=== PATIENT | male | born 1975 | race Caucasian/White ===

== ENCOUNTER 2018-06-26 11:07 | Emergency (ER) | payer OTHER ==
[2018-06-26 11:25] VITALS: BP 136/100
--- NOTE | 2018-06-26 11:44 | ED Physician Documentation ---
PD HPI HEENT - Stated complaint Stated Complaint: SINUS PRESSURE - Chief complaint Chief Complaint: Heent - History obtained from History obtained from: Patient - History of Present Illness Timing - onset: How many months ago (1) Timing - details: Gradual onset, Still present Pain level max: 0 Pain level now: 0 Location: Sinuses Improves: Nothing Worsens: Other (nothing) Associated symptoms: Congestion, Rhinorrhea. No: Fever, Trismus, Unable to swallow, Swollen nodes, Facial swelling, Headache, Cough Similar symptoms before: Has not had sx before Recently seen: Not recently seen - Additional information Additional information: 43-year-old male with history of sleep apnea and sinus surgery related to deviated septums 8 years ago here with complaint of upper respiratory infection the past month. However he stated that the sinus congestion and pressure has not cleared even if he had taken Zyrtec, Afrin, and [id number] Sudafed. The last time he had taken Sudafed was over 2 weeks ago. He took Afrin spray today to help him breathe better.Denies any trauma, travel or sick contact. Review of Systems Ten Systems: 10 systems reviewed and negative Constitutional: reports: Reviewed and negative. denies: Fever, Chills, Myalgias Eyes: reports: Reviewed and negative Ears: reports: Reviewed and negative. denies: Loss of hearing, Ear pain, Tinnitus/ringing Nose: reports: Rhinorrhea / runny nose, Congestion, Sinus pressure / pain. denies: Epistaxis, Foreign Body Throat: denies: Oral lesions / sores, Sore throat Cardiac: denies: Chest pain / pressure Respiratory: denies: Dyspnea, Cough GI: denies: Abdominal Pain, Nausea Musculoskeletal: denies: Neck pain Neurologic: reports: Reviewed and negative. denies: Generalized weakness Endocrine: denies: Swollen lymph nodes PD PAST MEDICAL HISTORY - Past Medical History Past Medical History: Yes Other Past Medical History: Sleep apnea - Past Surgical History Past Surgical History: Yes - Present Medications Home Medications: Ambulatory Orders Medication Instructions Recorded Confirmed Amox/Clav 875/125 [Augmentin] 1 each PO Q12H #20 tablet 06/26/18 Pseudoephedrine HCl [Sudafed 12 120 mg PO BID #6 tablet.er 06/26/18 Hour] - Allergies Allergies/Adverse Reactions: Allergies Allergy/AdvReac Type Severity Reaction Status Date / Time Penicillins Allergy Unknown Verified 06/26/18 11:25 - Social History Does the pt smoke?: No Smoking Status: Never smoker Does the pt drink ETOH?: Yes Does the pt have substance abuse?: No - Immunizations Immunizations are current?: Yes PD ED PE NORMAL - Vitals Vital signs reviewed: Yes - General General: Alert and oriented X 3, No acute distress, Well developed/nourished - HEENT HEENT: Atraumatic, PERRL, EOMI, Ears normal, Moist mucous membranes, Pharynx benign, Other (Nose with clear secretions.Sinuses nontender to percussion of frontal and maxillary sinuses) - Neck Neck: Supple, no meningeal sign, No adenopathy - Cardiac Cardiac: RRR, No murmur, Strong equal pulses - Respiratory Respiratory: No respiratory distress - Abdomen Abdomen: Soft, Non tender - Derm Derm: Normal color, Warm and dry - Extremities Extremities: No deformity - Neuro Neuro: Alert and oriented X 3, Normal speech - Psych Psych: Normal mood, Normal affect Results - Vitals Vitals: Vital Signs - 24 hr 06/26/18 11:22 Temperature 36.3 C L Heart Rate 72 Respiratory 17 Rate Blood Pressure 136/100 H O2 Saturation 98 Oxygen O2 Source Room air PD MEDICAL DECISION MAKING - ED course Complexity details: considered differential (Sinusitis, sinus disease, upper respiratory infection,Polyps), d/w patient ED course: Patient seems to be desperate to get treated right away although he is not in any acute distress and nontoxic-appearing. He does not want any pain medication for the sinus pressure. He agreed to antibiotics and decongestant Sudafed. Instructed not to overuse his Flonase or Afrin nasal spray Or Sudafed due to rebound. Departure - Departure Disposition: 01 Home, Self Care Clinical Impression: Sinusitis Qualifiers: Sinusitis location: frontal Chronicity: acute Recurrence: non-recurrent Qualified Code(s): J01.10 - Acute frontal sinusitis, unspecified Condition: Stable Instructions: ED Sinusitis Abx Tx Prescriptions: Amox/Clav 875/125 [Augmentin] 1 each PO Q12H #20 tablet Pseudoephedrine HCl [Sudafed 12 Hour] 120 mg PO BID #6 tablet.er Comments: Take the antibiotics and Sudafed as prescribed. Avoid overusing your Afrin or Flonase spray. Follow-up with your primary doctor and get reevaluated and referred to an ENT. If worse return to the emergency room. Discharge Date/Time: 06/26/18 11:51
== END 2018-06-26 11:51 | disposition home or self-care (01) ==
LOC: ED 11:07
DX: J01.10 Acute frontal sinusitis, unspecified (principal)
CPT/HCPCS: 99283

== ENCOUNTER 2019-05-01 07:46 | Outpatient (CLI) | payer OTHER ==
--- NOTE | 2019-05-01 10:36 | MRI Report ---
Reason: LOW BACK PAIN Procedure Date: 05/01/2019 Accession Number: [id number] / [id number] Procedure: MRI - Lumbar Spine W/O CPT Code: Final Report FULL RESULT: EXAM: MRI LUMBAR SPINE WITHOUT CONTRAST EXAM DATE: 05/01/2019 09:26 AM. CLINICAL HISTORY: Chronic low back pain. COMPARISON: None. TECHNIQUE: Multiplanar, multisequence T1-weighted and fluid-sensitive sequences of the lumbar spine from T12 to S1 without contrast. Other: None. FINDINGS: Spinal Canal: The conus terminates at T12-L1. The conus medullaris and cauda equina are unremarkable. Alignment: No scoliosis or spondylolisthesis. Straightening of the lumbar spine. Bone Marrow: Five efa-qry-nocrxph lumbar vertebral bodies are assumed. No gross fractures or bone lesions. No bone marrow replacement. Disk Levels/Facets: T12-L1: Unremarkable. L1-L2: Unremarkable. L2-L3: Unremarkable. L3-L4: Right lateral 3 mm disk protrusion which contacts the exiting right L3 nerve root without impingement. Negative for central spinal canal stenosis. Mild right foraminal stenosis. The left neural foramen is negative for stenosis. L4-L5: Posterior right paracentral 3 mm disk protrusion. Mild right lateral recess stenosis. Mild spinal canal stenosis. Facet joints are within normal limits. Mild disk degeneration. Left neural foramen is negative for stenosis. Mild bilateral stenosis. Mild superior right L5 vertebral body degenerative marrow edema. L5-S1: Posterior left paracentral 4 mm disk herniation with high signal annulus fissure with mild bilateral lateral recess stenosis. Disk herniation contacts the left S1 nerve root axilla (image 6 series 601). Musculature: Normal. No edema or fatty atrophy. Other: The partially visualized retroperitoneum is unremarkable. IMPRESSION: 1. Posterior left paracentral 4 mm L5-S1 disk herniation with high signal annulus fissure and mild left lateral recess stenosis. Posterior left paracentral disk herniation contacts the left S1 nerve axilla without impingement. 2. Posterior 3 mm disk protrusion L4-L5 with mild bilateral lateral recess stenosis, mild central spinal canal stenosis and mild bilateral foraminal stenosis L4-L5. 3. Right lateral 3 mm L3-L4 disk protrusion which contacts the exiting right L3 nerve root and there is mild right foraminal stenosis. Comment: The following findings are so common in adults without low back pain that while we report their presence, they must be interpreted with caution and in the context of the clinical situation. (Reference Xik et al, Spine 2001) Prevalence of findings in patients without low back pain: Disk degeneration (any evidence): 92% Disk desiccation/T2 signal loss: 83% Disk height loss: 56% Disk bulge: 64% Disk protrusion: 32% Annular tear/high intensity zone: 38% RADIA
== END 2019-05-01 07:47 | disposition home or self-care (01) ==
LOC: DI 07:46
PROVIDERS: ATTEND Student in an Organized Health Care Education/Training Program
DX: M51.26 Other intervertebral disc displacement, lumbar region (principal); M51.27 Other intervertebral disc displacement, lumbosacral region; M48.061 Spinal stenosis, lumbar region without neurogenic claudication; M48.07 Spinal stenosis, lumbosacral region
CPT/HCPCS: 72148

== ENCOUNTER 2020-05-11 06:41 | Emergency (ER) | payer OTHER ==
[2020-05-11] MEDS ORDERED: HYDROmorphone 1 MG/ML CARPUJECT IVP STA ×2 (07:16→07:55)
[2020-05-11] MEDS ORDERED: DEXAMETHASONE 10 MG/ML VIAL IVP STA (07:16)
[2020-05-11] MEDS ORDERED: diazePAM INJ 5 MG/ML SYRINGE IVP STA (07:16)
[2020-05-11] MEDS ORDERED: KETOROLAC 30 MG/ML VIAL IVP STA (07:16)
--- NOTE | 2020-05-11 08:17 | ED Physician Documentation ---
PD HPI BACK PAIN - Stated complaint Stated Complaint: BACK PX - Chief complaint Chief Complaint: General - History obtained from History obtained from: Patient - History of Present Illness Timing - onset: Last night Timing - details: Abrupt onset, Still present Location: Lower, Left Quality: Similar to prior episodes (but more severe than previous.) Associated symptoms: Numbness (some numbness left foot and big toe.). No: Fever, Weakness, Incontinent of urine Improves with: No: Rest Worsened by: Movement, Twisting Contributing factors: Twisting. No: Lifting, Trauma Similar symptoms before: Diagnosis (episodic problems with back for years. MRI a year ago showed some herniated discs. Takes Aleve, Flexeril PRN not regularly.) Recently seen: Not recently seen Review of Systems Constitutional: denies: Fever, Chills Nose: denies: Rhinorrhea / runny nose, Congestion Throat: denies: Sore throat Cardiac: denies: Chest pain / pressure Respiratory: denies: Cough GI: denies: Abdominal Pain, Nausea, Vomiting : denies: Dysuria, Incontinent Neurologic: reports: Numbness (some in left foot and big toe). denies: Focal weakness PD PAST MEDICAL HISTORY - Past Medical History Past Medical History: Yes Cardiovascular: None Respiratory: None Endocrine/Autoimmune: None GI: None Musculoskeletal: Chronic back pain - Past Surgical History Past Surgical History: Yes - Present Medications Home Medications: Ambulatory Orders Medication Instructions Recorded Confirmed Amox/Clav 875/125 [Augmentin] 1 each PO Q12H #20 tablet 06/26/18 Pseudoephedrine HCl [Sudafed 12 120 mg PO BID #6 tablet.er 06/26/18 Hour] Oxycodone HCl/Acetaminophen 1 - 2 each PO Q6H PRN #20 tablet 05/11/20 [Percocet 5-325 mg Tablet] dexAMETHasone [Decadron] 4 mg PO DAILY #5 tablet 05/11/20 diazePAM [Valium] 5 mg PO TID PRN #20 tablet 05/11/20 - Allergies Allergies/Adverse Reactions: Allergies Allergy/AdvReac Type Severity Reaction Status Date / Time Penicillins Allergy Unknown Verified 06/26/18 11:25 - Social History Does the pt smoke?: No Smoking Status: Never smoker Does the pt drink ETOH?: Yes Does the pt have substance abuse?: No - Immunizations Immunizations are current?: Yes - POLST Patient has POLST: No PD ED PE NORMAL - Vitals Vital signs reviewed: Yes - General General: Alert and oriented X 3, Well developed/nourished, Other (appears in pain due to low back; guarded ROM. ) - Cardiac Cardiac: RRR, No murmur - Respiratory Respiratory: Clear bilaterally - Abdomen Abdomen: Soft, Non tender - Back Back: No CVA TTP, No spinal TTP, Other (tender left paralumbar muscles. No rash nor sores. ) - Derm Derm: Normal color, Warm and dry, No rash - Neuro Neuro: Alert and oriented X 3, No motor deficit, Normal speech, Other (normal knee reflexes. There is decreased sensation left top of foot and anteromedial lower leg. Else symmetric and can distinguish firm/light touch. ) Results - Vitals Vitals: Vital Signs - 24 hr 05/11/20 05/11/20 05/11/20 06:48 06:56 08:45 Temperature 36.9 C 36.9 C 36.8 C Heart Rate 90 90 84 Respiratory 24 24 15 Rate Blood Pressure 116/90 H 116/90 H 118/78 O2 Saturation 97 97 99 Oxygen O2 Source Room air PD MEDICAL DECISION MAKING - ED course Complexity details: re-evaluated patient (pain improved enough for the patient. He is able to move reasonably. ), considered differential (low back pain without acute trauma. No red flags to suggest need for imaging. ), d/w patient Departure - Departure Disposition: 01 Home, Self Care Clinical Impression: Low back pain Qualifiers: Chronicity: acute Back pain laterality: left Sciatica presence: with sciatica Sciatica laterality: sciatica of left side Qualified Code(s): M54.42 - Lumbago with sciatica, left side Condition: Stable Record reviewed to determine appropriate education?: Yes Instructions: ED Spasm Back No Trauma, ED Sciatica Follow-Up: LETICIA POPE MD [Primary Care Provider] - Prescriptions: dexAMETHasone [Decadron] 4 mg PO DAILY #5 tablet Oxycodone HCl/Acetaminophen [Percocet 5-325 mg Tablet] 1 - 2 each PO Q6H PRN #20 tablet PRN Reason: pain diazePAM [Valium] 5 mg PO TID PRN #20 tablet PRN Reason: Spasms Comments: Heat and gentle stretching for the back massage and chiropractic are good as well. Try to reduce the spasming. Continue Aleve 2 to 3 tablets twice daily. Add Decadron steroid daily for 5 more days. Diazepam 3 times a day if needed for spasms. When improving you can return to your cyclobenzaprine instead. Add Tylenol or Percocet if needed for pain. Off work for 2 to 3 days. Recheck if not improved well over the next several days. Forms: Activity restrictions Discharge Date/Time: 05/11/20 08:51
[2020-05-11 08:51] VITALS: BP 118/78
== END 2020-05-11 08:51 | disposition home or self-care (01) ==
LOC: ED 06:41
DX: M54.42 Lumbago with sciatica, left side (principal)
CPT/HCPCS: 36415; 96374; 96375; 99283; 99284; J1170

== ENCOUNTER 2022-03-16 08:03 | Outpatient (CLI) | payer OTHER ==
--- NOTE | 2022-03-16 10:26 | MRI Report ---
PROCEDURE: Lumbar Spine W/O INDICATIONS: LOW BACK PAIN, NECK PAIN, BILAT CERVICAL RADICULOP TECHNIQUE: Noncontrast sagittal T1 spin echo and T2 fast echo, sagittal STIR, axial T1 and T2 fast spin echo thr ough the lumbar spine. In cases with scoliosis, additional coronal T2 fast spin echo may be performe d. COMPARISON: 05/01/2019 FINDINGS: Image quality: Excellent. Alignment and Curvature: No spondylolisthesis. Bone Marrow: No acute fracture. Scattered mild Modic changes. Spinal Cord: Conus terminates at L1. Normal appearance of the cauda equina nerve roots. Paraspinous Soft Tissues: Hypertrophy versus isointense mass in the lower pole of the right kidney (5 /26) possible adjacent calcification (5/30). T12-L1: Normal in appearance. L1-L2: Normal in appearance. L2-L3: Mild facet arthropathy and small diffuse disc bulge. No stenosis. L3-L4: Moderate-sized diffuse disc bulge and facet arthropathy. Mild central narrowing. There is mi ld bilateral neural foraminal narrowing. L4-L5: Diffuse disc bulge with superimposed central protrusion and annular fissure. There is modera te central narrowing affecting both subarticular recesses. Bilateral facet arthropathy. Moderate bila teral neural foraminal narrowing. L5-S1: Diffuse disc bulge, and left paracentral protrusion with an annular fissure. There is facet arthropathy. Slight displacement of the left subarticular recess traversing S1 nerve root. Moderate left and mild right neural foraminal narrowing. IMPRESSION: Mid and lower lumbar spondylosis as above, primarily involving disc disease. These are s lightly progressed compared to imaging from 2019. There is a questionable mass versus hypertrophy of the lower pole the right kidney. This area is not well seen on lumbar spine MRI. Ultrasound is recommended. Reviewed by: Benji Avendano MD on 03/16/2022 10:25 AM PDT Approved by: Benji Avendano MD on 03/16/2022 10:25 AM PDT Station ID: [id number]
--- NOTE | 2022-03-16 10:49 | MRI Report ---
PROCEDURE: Cervical Spine W/O INDICATIONS: LOW BACK PAIN, NECK PAIN, BILAT CERVICAL RADICULOP TECHNIQUE: Noncontrast sagittal T1 spin echo and T2 fast spin echo, sagittal STIR, foraminal oblique sagittal T2 fast spin echo, and axial gradient echo through the cervical spine. COMPARISON: None. FINDINGS: Image quality: Excellent. Alignment and Curvature: There is normal bony alignment. Bone Marrow: Marrow demonstrates normal overall signal. Spinal Cord: Visualized spinal cord has normal size and signal. No cerebellar tonsillar herniation. Paraspinous Soft Tissues: No paravertebral masses. Prevertebral soft tissues are normal in thicknes s. C2-C3: Mild right uncovertebral joint and facet hypertrophy, which results in mild right neural fora angie narrowing without significant spinal canal stenosis or left neural foraminal narrowing. C3-C4: Mild disc desiccation as well as right greater than left uncovertebral joint and facet hyper trophy, which result in mild narrowing of the right neural foramen without significant left neural fo raminal narrowing or spinal canal stenosis. C4-C5: Mild disc desiccation and loss of disc space height as well as bilateral uncovertebral joint and facet hypertrophy. Findings result in moderate to severe right and mild left neural foraminal bartolo rowing without significant spinal canal stenosis. C5-C6: Mild disc desiccation as well as bilateral uncovertebral joint and facet hypertrophy, which r esult in mild to moderate bilateral neural foraminal narrowing without significant spinal canal steno sis. C6-C7: Disc desiccation and mild posterior disc-osteophyte complex as well as bilateral intervertebr al joint and facet hypertrophy, which result in moderate to severe bilateral neural foraminal narrowi ng without significant spinal canal stenosis. C7-T1: No significant disc bulging, spinal canal stenosis, or neuroforaminal narrowing. IMPRESSION: 1.Multilevel facet joint and uncovertebral joint hypertrophy as well as mild degenerative disc diseas e as described in detail in the body the report. 2.Multilevel neural foraminal narrowing is most notable and moderate to severe at the right C4-5 neur al foramen and the bilateral C6-7 neural foramina. 3.No high-grade spinal canal stenosis. Reviewed by: Blas Briscoe MD on 03/16/2022 10:48 AM PDT Approved by: Blas Briscoe MD on 03/16/2022 10:48 AM PDT Station ID: [id number]
== END 2022-03-16 08:04 | disposition home or self-care (01) ==
LOC: DI 08:03
DX: M47.26 Other spondylosis with radiculopathy, lumbar region (principal); M51.16 Intervertebral disc disorders with radiculopathy, lumbar region; M47.27 Other spondylosis with radiculopathy, lumbosacral region; M51.17 Intervertebral disc disorders with radiculopathy, lumbosacral region; M48.061 Spinal stenosis, lumbar region without neurogenic claudication; M48.07 Spinal stenosis, lumbosacral region; M47.22 Other spondylosis with radiculopathy, cervical region; M50.11 Cervical disc disorder with radiculopathy, high cervical region

== ENCOUNTER 2023-07-11 09:50 | Emergency (ER) | payer BC, OTHER ==
[2023-07-11] MEDS ORDERED: cefTRIAXone 1 GM VIAL IM STA (11:25)
[2023-07-11] MEDS ORDERED: LIDOCAINE 1% 2 ML VIAL MC ONE (11:25)
[2023-07-11] MEDS ORDERED: DEXAMETHASONE 10 MG/ML VIAL PO STA (11:26)
[2023-07-11] MEDS ORDERED: CHERRY SYRUP 10 ML UDC PO ONE (11:26)
--- NOTE | 2023-07-11 11:26 | ED Physician Documentation ---
PD HPI HEENT - Stated complaint Stated Complaint: LT EAR PX - Chief complaint Chief Complaint: Heent - History obtained from History obtained from: Patient - History of Present Illness Timing - onset: How many days ago (5) Timing - duration: Days (5) Timing - details: Gradual onset, Still present Location: Left ear Improves: Medication Worsens: Swalllowing Associated symptoms: Congestion, Rhinorrhea, Swollen nodes, Facial swelling, Cough Similar symptoms before: Diagnosis (OM) Recently seen: Clinic - Additional information Additional information: 48-year-old Byron Fernandez believes he might have an allergy to penicillin and he has come to the emergency department today after being treated with azithromycin for otitis media and having progression of symptoms. He is on his third day of azithromycin. He has had prior otitis that led to a hospitalization when it did not respond to treatment. Review of Systems Constitutional: denies: Fever Eyes: denies: Decreased vision Ears: reports: Loss of hearing, Ear pain Nose: reports: Rhinorrhea / runny nose, Congestion Throat: denies: Sore throat Respiratory: reports: Cough. denies: Dyspnea PD PAST MEDICAL HISTORY - Past Medical History Past Medical History: Yes Cardiovascular: Hypertension Respiratory: None Neuro: None Endocrine/Autoimmune: None GI: None : None HEENT: None Psych: None Musculoskeletal: Chronic back pain Derm: None - Past Surgical History Past Surgical History: Yes - Present Medications Home Medications: Ambulatory Orders Medication Instructions Recorded Confirmed Azithromycin [Zithromax] 250 mg PO DAILY 07/11/23 07/11/23 Cefdinir 300 mg PO BID #20 cap 07/11/23 Lisinopril [Zestril] 20 mg PO DAILY 07/11/23 07/11/23 - Allergies Allergies/Adverse Reactions: Allergies Allergy/AdvReac Type Severity Reaction Status Date / Time Penicillins Allergy Unknown Verified 07/11/23 10:02 acetaminophen [From Vicodin] AdvReac Itching Verified 07/11/23 10:02 hydrocodone [From Vicodin] AdvReac Itching Verified 07/11/23 10:02 - Social History Does the pt smoke?: No Smoking Status: Former smoker Does the pt drink ETOH?: Yes Does the pt have substance abuse?: No - Immunizations Immunizations are current?: Yes - POLST Patient has POLST: No PD ED PE NORMAL - Vitals Vital signs reviewed: Yes (hypertensive mild ) - General General: Alert and oriented X 3, No acute distress, Well developed/nourished - HEENT HEENT: Atraumatic, PERRL, EOMI, Pharynx benign, Other (The left TM is markedly inflamed with distortion of the landmarks. The right has only mild cerntral erythema) - Neck Neck: Supple, no meningeal sign, No bony TTP, Other (There is tenderness and fullness along the left jaw at the angle of the jaw. No fluctuance. ) - Cardiac Cardiac: RRR, No murmur - Respiratory Respiratory: No respiratory distress, Clear bilaterally - Abdomen Abdomen: Soft, Non tender - Back Back: No CVA TTP, No spinal TTP - Derm Derm: Normal color, Warm and dry, No rash - Extremities Extremities: No deformity, No edema - Neuro Neuro: Alert and oriented X 3, statistical technician 2-12 intact, No motor deficit, No sensory deficit, Normal speech Eye Opening: Spontaneous Motor: Obeys Commands Verbal: Oriented GCS Score: 15 - Psych Psych: Normal mood, Normal affect Results - Vitals Vitals: Vital Signs - 24 hr 07/11/23 10:04 Temperature 36.8 C Heart Rate 92 Respiratory 16 Rate Blood Pressure 137/84 H O2 Saturation 97 Oxygen O2 Source Room air PD Medical Decision Making - ED course Complexity details: considered differential, d/w patient ED course: 48-year-old male failing outpatient management of otitis with azithromycin presents to the emergency department with progressive symptoms. He does appear to have an angry otitis on the left side he does have some mild swelling to the left side of his face as well. He has had a prior poor outcome. Today we are aggressive about treatment administering a gram of Rocephin IM and we have given the patient a dose of dexamethasone as well. We will place him on some cefdinir. I have instructed the patient he may want to test for penicillin allergy as a common antibiotics used for treatment of otitis usually involve amoxicillin. Departure - Departure Disposition: 01 Home, Self Care Clinical Impression: Otitis media Qualifiers: Otitis media type: suppurative Chronicity: acute Laterality: left Recurrence: recurrent Spontaneous tympanic membrane rupture: without spontaneous rupture Qualified Code(s): H66.005 - Acute suppurative otitis media without spontaneous rupture of ear drum, recurrent, left ear Condition: Stable Instructions: ED Otitis Media Acute Adult Follow-Up: NAN SHELL PA [Primary Care Provider] - Prescriptions: Cefdinir 300 mg PO BID #20 cap Comments: Byron, today it looks like you are failing treatment of middle ear infection and we have switched your antibiotic to cefdinir. We did give you an injection of Rocephin here in the emergency department as well as a dose of dexamethasone. Our expectations with treatment are improvement of your symptoms over this next week. The cefdinir has been e[facility] to [facility] in [place].
[2023-07-11 12:03] VITALS: BP 128/82; O2SAT 98
== END 2023-07-11 12:00 | disposition home or self-care (01) ==
LOC: ED 09:50
DX: H66.005 Acute suppurative otitis media without spontaneous rupture of ear drum, recurrent, left ear (principal); Z87.891 Personal history of nicotine dependence
CPT/HCPCS: 96372; 99283; 99284; A9270

== ENCOUNTER 2023-08-21 08:42 | Emergency (ER) | payer BC, OTHER ==
--- NOTE | 2023-08-21 09:00 | ED Physician Documentation ---
PD HPI HEENT - Stated complaint Stated Complaint: LT EAR PX - Chief complaint Chief Complaint: Heent - History obtained from History obtained from: Patient - History of Present Illness Timing - onset: How many weeks ago Timing - details: Gradual onset, Still present, Waxing and waning (Has been treated with several antibiotic courses over the last 3 weeks with some improvement but no resolution.) Location: Left ear. No: Sinuses, Throat Worsens: Swalllowing Associated symptoms: No: Fever, Congestion, Rhinorrhea, Facial swelling Recently seen: Clinic, Emergency Dept, Other (He has been seen several times. Initially prescribed Zithromax from the clinic without improvement. Then seen in the ER and prescribed cefdinir. Not improved and then treated Cipro orally. Most recent was 2 days ago and started on ofloxacin eardrops with cefuroxime orally. Symptoms increased.) Review of Systems Constitutional: denies: Fever, Chills, Myalgias Ears: reports: Loss of hearing (left ear) Nose: denies: Rhinorrhea / runny nose, Congestion Throat: denies: Sore throat Respiratory: denies: Cough PD PAST MEDICAL HISTORY - Past Medical History Cardiovascular: None Respiratory: None Neuro: None Endocrine/Autoimmune: None GI: None : None HEENT: None Psych: None Musculoskeletal: Chronic back pain Derm: None - Past Surgical History Past Surgical History: Yes - Present Medications Home Medications: Ambulatory Orders Medication Instructions Recorded Confirmed Lisinopril [Zestril] 20 mg PO DAILY 07/11/23 08/21/23 Cefuroxime Axetil [Cefuroxime] 1 tab PO BID 08/21/23 08/21/23 Doxycycline Hyclate 100 mg PO BID 7 Days #14 cap 08/21/23 Magnesium 1 tab PO DAILY 08/21/23 08/21/23 Meloxicam [Mobic] 7.5 mg PO BID 10 Days #20 tablet 08/21/23 Neomycin/Polymyx/Hc Otic Drops 4 drops LEFTEAR Q4H 5 Days #10 ml 08/21/23 [Cortisporin Ear Susp] Ofloxacin [Ofloxacin Otic drops] 1 drops OT DAILY 08/21/23 08/21/23 Oxycodone HCl/Acetaminophen 1 each PO Q6H PRN #10 tablet 08/21/23 [Percocet 5-325 mg Tablet] - Allergies Allergies/Adverse Reactions: Allergies Allergy/AdvReac Type Severity Reaction Status Date / Time Penicillins Allergy Unknown Verified 07/11/23 10:02 acetaminophen [From Vicodin] AdvReac Mild Itching Verified 08/21/23 09:00 hydrocodone [From Vicodin] AdvReac Mild Itching Verified 08/21/23 09:00 - Social History Does the pt smoke?: No Smoking Status: Never smoker Does the pt drink ETOH?: Yes Does the pt have substance abuse?: No - Immunizations Immunizations are current?: Yes - POLST Patient has POLST: No PD ED PE NORMAL - Vitals Vital signs reviewed: Yes - General General: Alert and oriented X 3, Well developed/nourished - HEENT HEENT: Pharynx benign. No: Ears normal (right is normal. Left with inflammation and exudate left ear canal. Culture obtained. TM poorly seen but appears inflammated. No noted perforation. Canal tissue swelling. ) - Neck Neck: Supple, no meningeal sign, Other (left neck anterior tender adenopathy. ) Results - Vitals Vitals: Vital Signs - 24 hr 08/21/23 08/21/23 08:49 10:45 Temperature 36.8 C Heart Rate 83 78 Respiratory 12 18 Rate Blood Pressure 153/98 H 145/86 H O2 Saturation 97 100 Oxygen O2 Source Room air - Labs Labs: Microbiology 08/21/23 09:15 Ear Culture - Preliminary Ear,Outer - Left - Rads (name of study) maxilofacial CT Relevant Findings:: Prelim report reviewed (norml mastoids. Ear canal inflammation. No abscess. ), EMP independent interpretation of test PD Medical Decision Making - ED course Complexity details: reviewed results (Maxillofacial CT was done to ensure no signs of abscess, bone degradation or mastoid air cell involvement. These were normal by report. Swelling noted in the ear canal area. No obvious otitis media.), considered differential (The patient has had persistent left ear pain and swelling with diagnosis of middle ear infection and ear canal for several weeks. Unresponsive to several courses of antibiotics. Here with increased pain now.), d/w patient ED course: The patient does have swelling and exudate in the ear canal. The eardrum appears slightly inflamed and hard to fully identify. The CT scan showed infl ammation around the ear canal but it did to my eye extend into the deeper tissue. For that reason, I feel it would not respond to just eardrops. The likely culprit is more likely staph in the ear canal. His previous antibiotics had been Zithromax, Saif the near and cefuroxime so all more targeted to strep. I feels changing him to staph coverage will be more effective. Also given some anti-inflammatories and pain medicines for the short-term. Departure - Departure Disposition: 01 Home, Self Care Clinical Impression: Ear pain, left, Otitis externa, Cellulitis of left ear canal Condition: Stable Record reviewed to determine appropriate education?: Yes Follow-Up: NAN SHELL PA [Primary Care Provider] - [facility] [place] [Provider Group] Prescriptions: Neomycin/Polymyx/Hc Otic Drops [Cortisporin Ear Susp] 4 drops LEFTEAR Q4H 5 Days #10 ml Doxycycline Hyclate 100 mg PO BID 7 Days #14 cap Meloxicam [Mobic] 7.5 mg PO BID 10 Days #20 tablet Oxycodone HCl/Acetaminophen [Percocet 5-325 mg Tablet] 1 each PO Q6H PRN #10 tablet PRN Reason: pain Comments: Your CT scan shows soft tissue inflammation around the ear canal and towards the middle ear. No signs of bone involvement nor fluid buildup around the ear bones nor mastoid air cells. No abscesses seen. It therefore does not appear to have a deep-seated source of infection. I presume the difficulty getting rid of it may be more the antibiotics being off target. I would add doxycycline for better staph coverage (the initial antibiotics were the ones most commonly used for this so were appropriate i nitially). You can continue the most recent antibiotic of cefuroxime. Add the doxycycline. I would change the antibiotic eardrops to Cortisporin. This does have a mild steroid in it as well to help with inflammation. Add meloxicam anti-inflammatory twice daily with food for the next week. To that add Tylenol 500 to 650 mg every 4-6 hours if needed for pain. To that add oxycodone/acetaminophen every 6 hours if needed for worse pain. I am hoping this will improve well over the next several days. I also given the name of a ear nose and throat group in [place]. He can call for follow-up appointment with them, being more specialized, they may have other approaches as well. I sent your prescriptions to preferred pharmacy, [facility] in [place]. I am prescribing a short course of narcotic pain medication for you. These are potentially dangerous and addictive medications that should be used carefully. These medications may constipate you. Take an [id number] stool softener such as docusate twice daily with plenty of water while taking these medications. If you go 24 hours without a bowel movement, take [id number] MiraLAX, per package instructions. Do not drink or drive while taking these medications. If you received narcotic or sedating medications while in the emergency department do not drive for 24 hours. Store this medication in a safe, secure place and out of reach of children. It is a violation of federal law to give or sell this medication to another person or to use in a manner other than prescribed. The ED will not refill narcotic prescriptions, including prescriptions lost or stolen. You can dispose of unwanted medications at the [facility]'s office or at several pharmacies such as [facility]. We did do a culture of the ear canal. The preliminary Gram stain is showing gram-positive cocci in pairs which would be suggestive of Staph aureus. They are seeing some bacilli as well. The culture of it will be more definitive and should result in a day or 2. Will be able to guide antibiotic choice or change it if we need to based off of that. Will call you if we need to change the antibiotics. Forms: PCP List Discharge Date/Time: 08/21/23 10:40
[2023-08-21] MEDS: DOXYCYCLINE 100 MG TABLET PO STA (09:46)
[2023-08-21] MEDS: ACETAMINOPHEN 325 MG TABLET PO STA (09:46)
[2023-08-21] MEDS: IBUPROFEN 600 MG TABLET PO STA (09:46)
--- NOTE | 2023-08-21 10:15 | CT Report ---
PROCEDURE: Maxillofacial WO INDICATIONS: left ear infection, recurrent, painful TECHNIQUE: Noncontrast 1.5 mm thick axial images acquired from the mandible through the frontal sinuses, with co faviola and sagittal reformatting. For radiation dose reduction, the following was used: automated ex posure control, adjustment of mA and/or kV according to patient size. COMPARISON: None. FINDINGS: Image quality: Excellent. Bones and teeth: Orbital nevarez are intact. Sinus nevarez show no fracture or deformity. Nasal bones and septum are intact. Visualized portions of the mandible demonstrate no fractures or subluxation. Zygomatic arches are intact. Pterygoid plates are intact. Visualized portions of the skull base an d auditory canals are intact. In this patient with this given history, scrutiny is given to the middle ear cavities. No abnormal fl uid or soft tissue can be seen within the middle ear cavities. Sinuses: Several mucous retention cysts can be seen involving the maxillary sinuses. Mild mucosal thi ckening can be seen elsewhere within the paranasal sinuses. The frontal sinuses are poorly developed. No abnormal mastoid air cell fluid can be seen. Soft tissues: There is thickening seen involving the soft tissues of the left external auditory leo l, as seen on series 8 image 74 and on series 3 image 190. Generalized regional inflammatory change c an be seen. No significant associated bony abnormality can be seen. No enlarged lymph nodes. No soft tissue lacerations or debris. Vascular: Visualized vascular structures appear normal in the absence of contrast. Bony vascular fo ramina and canals are intact. IMPRESSION: Extensive left-sided otitis externa, without lara otitis media. No abnormal mastoid air cell fluid can be seen. Reviewed by: Ap Dias MD on 08/21/2023 9:13 AM [facility] Approved by: Ap Dias MD on 08/21/2023 9:13 AM [facility] Station ID: [id number]
[2023-08-21 10:46] VITALS: BP 145/86; O2SAT 100
--- NOTE | 2023-08-24 11:38 | ED Physician Documentation ---
ED Addendum - Addendum Addendum: 08/24/23 Culture results reviewed which is positive for Pseudomonas. It is sensitive to bertha quinolones. Patient was discharged with prescriptions for doxycycline and Cortisporin otic drops. Will change prescriptions to Cipro p.o. as well as Ciprodex eardrops and these prescriptions have been sent to [facility]. Requested charge nurse to call patient to update regarding culture results and new prescriptions.
== END 2023-08-21 10:40 | disposition home or self-care (01) ==
LOC: ED 08:42
DX: H60.12 Cellulitis of left external ear (principal)
CPT/HCPCS: 70486; 87070; 99284; A9270; 87077; 87181

== ENCOUNTER 2024-01-05 13:43 | Outpatient (CLI) | payer BC, OTHER ==
--- NOTE | 2024-01-05 14:45 | Sleep Patient Instructions ---
Sleep Center Visit Summary - Patient Visit Information Reason for Visit: Initial consultation. - Patient Instructions Additional Instructions: You will continue with CPAP therapy with pressure set at 13 cmH2O. A supply prescription will be updated with your DME. I have added an order to update your PAP machine. Please call the office to schedule a compliance follow up once you get your new device. I will also send the referral for the Inspire Implant therapy and ordered another sleep study to update your diagnosis and severity. We encourage you to continue to try to lose weight. Please follow up with the sleep care office one month after obtaining new device. - Clinic Information Contact: [facility] [address] [place] [address] [email or web address] T: [phone]
--- NOTE | 2024-01-05 14:50 | SLEEP CARE CONSULTATION ---
Information from patient questionnaire entered by Franci Cortez. I have reviewed and concur with the information entered by Franci Cortez. This document represents the service I personally performed and the decisions made by me, Shalini Flores ARNP. History of Present Illness Service Date and Time: 01/05/2024 1343 Reason for Visit: New patient, Previously diagnosed sleep apnea, sleep apnea on CPAP therapy Chief Complaint: reports: Other (UPDATE SUPPLIES) Date of Onset: 7YRS Usual bedtime: 9PM Time it takes to fall asleep: 45MINS Snores at night: Yes Observed to quit breathing while asleep: Yes Sleeps alone due to snoring: No Number of times waking at night: 6-8 Reasons for waking at night: reports: Snoring, Gasping for air, Bathroom, Other (NOISE) Toss, Turn, or Twitch while sleeping: Yes Recalls having dreams: Yes Usually gets out of bed at: 2006-0110 Feels refreshed in the morning: No Morning headache: Yes Sleepy or fatigued during the day: Yes Ever fallen asleep while driving: No Takes day naps: No Prior sleep studies: Yes Year and Where: 2016 [facility] Additional HPI information: PATSY WOLFE was previously diagnosed to have severe, AHI 53.1, obstructive sleep apnea-hypopnea syndrome at [facility] on 05/26/2017 and comes in today to establish care for CPAP therapy. - Parasomnia Symptoms Ever been unable to move upon waking from sleep: No Walks in sleep: No Talks in sleep: Yes Ever acted out dreams in sleep: No Ever felt weak in the knees when startled or emotional: No Bothered by creepy, crawly, restless sensations in legs: No Problems with memory or concentration: Yes CPAP Compliance Data - Data Reviewed with Patient Average duration of nightly device use: 7 hours 55 minutes Compliance rate %: 98 (89/90 days used) Current pressure setting (cmH2O): 13 Average residual AHI: 0.9 Central apnea: 0.1 Obstructive apnea: 0.4 Hypopnea: 0.2 Average large leak: 6.2 L/min Compliance data discussion: He has a CPAP, [employer]Med Airsense 10 that was set up 06/10/2017. He is getting supplies from [employer] but needs an updated prescription to get supplies. He is using nasal cushion mask. He uses a chinstrap too. Subjective Patient concerns: reports: aerophagia, mask discomfort, air blowing in eyes, mask leak noise, condensation in mask/hose, nasal congestion, dry mouth, nose, throat, epistaxis Observed to snore while using device: Yes (sometimes) Current pressure setting perceived as: comfortable On therapy, patient: reports: sleeping better, awakening more refreshed, being more awake and alert during the day, more rested overall. 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 Patient is and lives in [place]. Have you smoked in the past 12 months: No Cigarettes per day (20/pack): 10 Years of smokin Quit date: 05/2010 Smoking Pack Years: 7.5 Alcohol use: Yes Alcohol amount and frequency: 2 DRINKS NIGHTLY Caffeine use: No Family History Family history of sleep disordered breathing: Yes Family Hx Sleep Apnea: Grandparent: Snoring (SON ), Sleep apnea - Treated (SON), Other: Snoring, Sleep apnea - Treated Allergies and Home Medications Known drug allergies: Yes (as listed) Drug allergies reviewed: Yes Home medication list reviewed: Yes (as listed) Allergy and home medication list: Allergies Penicillins Allergy (Verified 01/05/24 08:09) Unknown acetaminophen [From Vicodin] Adverse Reaction (Mild, Verified 01/05/24 08:09) Itching hydrocodone [From Vicodin] Adverse Reaction (Mild, Verified 01/05/24 08:09) Itching Home Medications Medication Instructions Recorded Confirmed Last Taken Type Lisinopril [Zestril] 20 mg PO DAILY 07/11/23 01/05/24 Unknown History Finasteride See Rx Instructions .ROUTE .COMPLEX 01/05/24 01/05/24 Unknown History Naltrexone See Rx Instructions .ROUTE .COMPLEX 01/05/24 01/05/24 Unknown History Propranolol See Rx Instructions .ROUTE .COMPLEX 01/05/24 01/05/24 Unknown History Xanax See Rx Instructions .ROUTE .COMPLEX 01/05/24 01/05/24 Unknown History Review of Systems Weight gain over past 5 years: 20 Weight loss over past 5 years: 5 Cardiovascular: reports: high blood pressure, palpitations, irregular heart rate or pulse Gastrointestinal: reports: heartburn Neurological: reports: headaches Psychiatric: reports: anxiety Ear/Nose/Throat: reports: nasal congestion, sinus problems, dry mouth/throat, wisdom teeth removed. denies: tonsillectomy Musculoskeletal: reports: joint pain, neck pain, back pain Immunologic: reports: sneezing, allergies to food or environment Physical Exam Vital signs obtained and entered by: FRANCI Villeda MA Blood Pressure: 139/88 (LEFT ARM) Cuff size: long Heart Rate: 71 O2 Saturation: 96 Height: 6 ft Weight: 242 lb 3.2 oz Body Mass Index: 32.8 BMI Classification: Obese Neck circumference: 18.5 Mouth and throat: narrow oropharynx Soft palate: long Hard palate: normal Uvula: normal Uvula visualization: 0% Mallampati Class IV Tongue: enlarged in size with teeth cabrales on lateral edges Tonsils: 1+ Neck: normal w/o lymphadenopathy or thyromegaly Heart: regular rate and rhythm Lungs: clear bilaterally Impression and Plan 1. Obstructive Sleep Apnea-Hypopnea Syndrome, severe, with good treatment compliance and good apnea control. On CPAP therapy, the patient has better sleep quality and is more rested overall. He says he cannot sleep without his CPAP. His AirSense 10 was last updated in 2017 which makes him eligible for a new CPAP. The patients CPAP is over 5 years old and of reasonable use. Thus, the CPAP will be updated. A DWO prescription will be made. Compliance guidelines for new device and follow up discussed. Patient's apnea severity and rationale for treatment to reduce apnea, improve sleep quality and reduce cardiovascular and cerebrovascular events was reviewed. I also reviewed the benefit of consistent device use of CPAP for hypertension, gastric reflux, anxiety. Patient asking about the Inspire implantable sleep apnea device. Patient infor med that they would have to qualify for this type of therapy. A referral is needed for an ENT specialist who would evaluate if Inspire therapy is indeed right for them. Qualifications to be evaluated for Inspire therapy include a previous diagnosis of moderate to severe obstructive sleep apnea. They must also have tried, failed or have been unable to tolerate CPAP treatment. They should also have a BMI of 32 or less and do not have any other active implantable devices present (like a pacemaker). Patient will need to undergo a sleep endoscopy where they are put under light sedation and the airway is examined by an endoscope to determine the cause of their sleep apnea. If it is determined that Inspire therapy is right for them than they may proceed to implantation. He voiced understanding and desires to proceed with a referral. He would also need an updated sleep study since his last one was in 2017. I will order another sleep study to verify diagnosis and severity. 2. Obesity, unspecified. Currently patients BMI is 32.8. Obesity increases the risk of apnea, CPAP pressure requirements and overall health risks especially cardiovascular and diabetes. Thus patient is advised to lose weight. * Continue CPAP pressure at 13 cmH2O * Update machine * Update supply prescription * Referral for Inspire therapy * PSG/HST to verify diagnosis and severity * Notify me if snoring with mask or feeling that the pressure is too much or too little * Attempt to lose weight * Call this office if any problems using CPAP * Return for follow up one month after obtaining new device, or sooner if conc erns arise Continue with device pressure at (cmH2O): 13 Counseling Topics: Spare mask, Weight loss health impact Prescriptions: Auto CPAP, Device supplies, Other (Inspire implant referral) Plan: PSG, Inspire referral and update CPAP with compliance followup Visit Type: In Office Time Spent with Patient (minutes): 38 Provider Statement: I spent 100% of the Face to Face Visit with the patient with greater than 50% spent counseling the patient and coordination of care.
[2024-01-05 15:09] VITALS: BP 139/88; O2SAT 96
== END 2024-01-05 13:44 | disposition home or self-care (01) ==
LOC: SC 13:43
PROVIDERS: ATTEND Nurse Practitioner Family
DX: G47.33 Obstructive sleep apnea (adult) (pediatric) (principal); E66.9 Obesity, unspecified; Z68.32 Body mass index [BMI] 32.0-32.9, adult
CPT/HCPCS: 99203; 99212